=== PATIENT | female | born 1960 | race Caucasian/White ===

== ENCOUNTER 2021-03-05 23:12 | Emergency (ER) | payer SELFPAY ==
[2021-03-05 23:21] VITALS: TEMP 98.2; BMI 31.8
[2021-03-06] MEDS ORDERED: ACETAMINOPHEN 325 MG TABLET (FP) PO ONE (01:04)
[2021-03-06] MEDS ORDERED: ACETAMINOPHEN 325 MG TABLET (FP) ONE (01:13)
[2021-03-06 02:12] LABS: BASO % 0.8 % (0-2.0); EOS % 1.6 % (0-4.5); HEMATOCRIT 41.8 % (32.4-45.2); HEMOGLOBIN 14.5 GM/dL (10.7-15.3); LYMPH % 38.8 % (8-40); MCHC 34.6 g/dl (32.0-36.0); MEAN CELL VOLUME 92.4 fl (80-96); MONO % 10.8 % (3.8-10.2); PLATELET COUNT 194 K/MM3 (134-434); RBC 4.53 M/mm3 (3.60-5.2); RDW 12.8 % (11.6-15.6); WHITE BLOOD COUNT 7.2 K/mm3 (4.0-10.0)
[2021-03-06 02:28] LABS: BLOOD UREA NITROGEN 15.4 mg/dL (7-18); CALCIUM 9.1 mg/dL (8.5-10.1); CO2 28 mmol/L (21-32)
[2021-03-06 02:29] LABS: GLUCOSE,RANDOM 106 mg/dL (74-106)
[2021-03-06 02:31] LABS: SGOT/AST 20 U/L (15-37); SGPT/ALT 32 U/L (13-61)
[2021-03-06 02:32] LABS: CREATININE 1.1 mg/dL (0.55-1.3)
[2021-03-06 02:33] LABS: BILIRUBIN,TOTAL 0.4 mg/dL (0.2-1)
[2021-03-06 02:34] LABS: ALK PHOS 92 U/L (45-117)
[2021-03-06 02:55] LABS: ANION GAP 7 MMOL/L (8-16); CHLORIDE 105 mmol/L (98-107); SODIUM 140 mmol/L (136-145)
[2021-03-06 03:10] VITALS: BP 148/89; PULSE 87
== END 2021-03-06 03:33 | disposition home or self-care (01) ==
LOC: JER 23:12
DX: R51.9 Headache, unspecified (principal); I10 Essential (primary) hypertension
CPT/HCPCS: 36415; 80053; 84484; 85025; 93005; 93010; 99284-25